=== PATIENT | female | born 1950 | race Caucasian/White ===

== ENCOUNTER 2017-08-04 14:36 | Inpatient (IN) | payer MEDICARE, BC ==
[~2017-08-04] VITALS: Ht 160 cm; Wt 43.5 kg
[2017-08-04] MEDS ORDERED: Magnesium 1GM/D5W 100ML PREMIX 200 ML IV ONE ×2 (14:47→15:43)
[2017-08-04] MEDS ORDERED: IPRATROPIUM NEB FS 0.5 MG/2.5 ML AMPUL.NEB NEB ONE (15:00)
[2017-08-04] MEDS ORDERED: IV NS 0.9% 1,000 ML BAG IV ONE (15:00)
[2017-08-04] MEDS ORDERED: methylPREDNISolone SOD SUCC 125 MG/2ML VIAL IV ONE (15:00)
[2017-08-04] MEDS ORDERED: ALBUTEROL FS 2.5 MG/3 ML VIAL.NEB CONTNEB ONE (15:00)
--- NOTE | 2017-08-04 15:00 | NUR ---
PT CAME IN FROM PMD OFFICE FOR SOB, HYPOXIA. SEEN BY FOR GUSTAVO. NOTED WITH MINIMAL LABORED BREATHING. PT NOTED ON CONTINUOUS OXYGEN AT HOME. SAFETY AND COMFORT MEASURES PROVIDED. WILL MONITOR.
[2017-08-04 15:09] LABS: BASOPHILS # (AUTO) 0.1 /CMM (0.0-0.2); EOSINOPHILS # (AUTO) 0.1 /CMM (0.0-0.7); HEMATOCRIT 34 % (33-45); HEMOGLOBIN 11.6 g/dL (11.5-14.8); LYMPHOCYTES # (AUTO) 1.8 /CMM (0.8-4.8); MEAN CORPUSCULAR HEMOGLOBIN 32 PG (26.0-33.0); MEAN CORPUSCULAR HGB CONC 34 g/dl (31.0-36.0); MEAN CORPUSCULAR VOLUME 96 fL (82-100); MONOCYTES # (AUTO) 0.6 /CMM (0.1-1.30); MONOCYTES % (AUTO) 5.3 % (2.0-12.0); NEUTROPHILS # (AUTO) 9.4 /CMM (1.8-8.9); NEUTROPHILS % (AUTO) 77.7 % (43.0-81.0); PLATELET COUNT (AUTO) 273 /CMM (150-450); RDW COEFFICIENT OF VARIATION 14.5 (11.5-15.0); RED BLOOD CELL COUNT(AUTO) 3.59 MIL/uL (4.0-5.2)
[2017-08-04 15:19] LABS: CALCIUM, SERUM 8.7 mg/dL (8.5-10.1); CARBON DIOXIDE 26 mmol/L (21-32); CHLORIDE 99 mmol/L (98-107); CREATININE 0.7 mg/dL (0.6-1.3); GLUCOSE 100 mg/dL (74-106); POTASSIUM 3.9 mmol/L (3.5-5.1); SODIUM SERUM 132 mmol/L (136-145); UREA NITROGEN, BLOOD 16 mg/dL (7-18)
[2017-08-04 15:25] LABS: ALANINE AMINOTRANSFERASE 17 U/L (12-78); ALBUMIN 2.8 g/dL (3.4-5.0); ALKALINE PHOSPHATASE 69 U/L (46-116); ASPARTATE AMINOTRANSFERASE 24 U/L (15-37); BILIRUBIN,DIRECT 0.1 mg/dL (0.0-0.2); BILIRUBIN,TOTAL 0.2 mg/dL (0.2-1.0); TOTAL PROTEIN, SERUM 6.9 g/dL (6.4-8.2)
[2017-08-04 15:27] LABS: TROPONIN I < 0.017 ng/mL (0.00-0.056)
--- NOTE | 2017-08-04 15:40 | NUR ---
IV ACCESS STARTED. PT MEDICATED ORDERED.
[2017-08-04] MEDS ORDERED: methylPREDNISolone SOD SUCC 125 MG/2ML VIAL ONE (15:43)
[2017-08-04] MEDS ORDERED: LEVOFLOXACIN 750 MG /D5W 150ML PIGGYBACK IV ONE (16:00)
[2017-08-04] MEDS ORDERED: ALBUTEROL FS 2.5 MG/3 ML VIAL.NEB ONE (16:00)
[2017-08-04] MEDS ORDERED: IPRATROPIUM NEB FS 0.5 MG/2.5 ML AMPUL.NEB ONE (16:00)
[2017-08-04] MEDS ORDERED: MULT-24 PO (16:14)
[2017-08-04] MEDS ORDERED: CHOL100044 PO (16:14)
[2017-08-04] MEDS ORDERED: BUPR1FIL3 SL (16:14)
[2017-08-04] MEDS ORDERED: RALO60TA PO (16:14)
[2017-08-04] MEDS ORDERED: ATOR10TA PO (16:14)
[2017-08-04] MEDS ORDERED: ASPI81TA2 PO (16:14)
[2017-08-04] MEDS ORDERED: DULO60CA45 PO (16:14)
[2017-08-04] MEDS ORDERED: DIVA250T6 PO (16:14)
[2017-08-04] MEDS ORDERED: FLUT1DIS3 IH (16:14)
[2017-08-04] MEDS ORDERED: ASCO500T9 PO (16:14)
[2017-08-04] MEDS ORDERED: PRIM250T8 PO (16:14)
[2017-08-04] MEDS ORDERED: ZOLP5TAB7 PO (16:14)
[2017-08-04] MEDS ORDERED: ALPR1TAB7 PO (16:14)
[2017-08-04] MEDS ORDERED: CYCL30DR EACHEYE (16:15)
[2017-08-04] MEDS ORDERED: QUET25TA PO (16:15)
[2017-08-04] MEDS ORDERED: MONT10TA22 PO (16:15)
[2017-08-04] MEDS ORDERED: TIOT18CA3 IH (16:15)
[2017-08-04] MEDS ORDERED: IOHEXOL-350 100 ML VIAL IV ONE (16:23)
[2017-08-04] MEDS ORDERED: CT SWABBABLE VALVE TRANS SET 1 EA INFUS.SET MC ONE (16:23)
[2017-08-04] MEDS ORDERED: IV NS 0.9% 250 ML IV ONE (16:23)
[2017-08-04] MEDS ORDERED: LEVOFLOXACIN 750 MG /D5W 150ML 150 ML IV ONE (16:32)
--- NOTE | 2017-08-04 16:33 | NUR ---
PT TAKEN FOR CTA.- SECOND IV ACCESS FOR CTA.
--- NOTE | 2017-08-04 17:20 | NUR ---
REPORT GIVEN TO JOSHUA GONZALEZ FOR TELE ROOM 327-1
--- NOTE | 2017-08-04 17:30 | NUR ---
PAGED DR. HAMMOND FOR UPDATE
[2017-08-04] MEDS ORDERED: ZOLPIDEM TARTRATE 5 MG TABLET PO PRN (18:00)
[2017-08-04] MEDS ORDERED: MAG HYDROX/AL HYDROX/SIMETH 30 ML UDC PO PRN (18:00)
[2017-08-04] MEDS ORDERED: LORAZEPAM 0.5 MG TABLET PO PRN (18:00)
[2017-08-04] MEDS ORDERED: MAGNESIUM HYDROXIDE 30 ML UDC PO PRN (18:00)
[2017-08-04] MEDS ORDERED: PRIMIDONE 250 MG TABLET PO SCH (18:00)
[2017-08-04] MEDS ORDERED: ENOXAPARIN SODIUM 40 MG/0.4 ML DISP.SYRIN SQ SCH (18:00)
[2017-08-04] MEDS ORDERED: ONDANSETRON HCL/PF 4 MG/2 ML VIAL IVP PRN (18:00)
[2017-08-04] MEDS ORDERED: Z GUARD REMEDY 2 OZ OINT TP PRN (18:00)
[2017-08-04] MEDS ORDERED: ACETAMINOPHEN 325 MG TABLET PO PRN (18:00)
[2017-08-04] MEDS ORDERED: QUETIAPINE FUMARATE 25 MG TABLET PO SCH (18:00)
--- NOTE | 2017-08-04 18:08 | NUR ---
MS/SCHOOL TRAFFIC GUARD RECEIVED PATIENT IN STABLE CONDITION FROM ER. ALERT AND ORIENTED TIMES 4. ABLE TO MAKE DECISIONS AND NEEDS KNOWN. AMBULATES WITH ASSIST. USES BEDSIDE COMMODE. ON TELE MONITOR. RIGHT F/A GAUGE 20 INTACT. REPORT GIVEN BY ALICIA FROM ER.
--- NOTE | 2017-08-04 18:46 | NUR ---
MS/RN CLOSING NOTE PATIENT IN BED AWAKE IN STABLE CONDITION. ALERT AND ORIENTED TIMES 4. NO SIGNS OF ACUTE DISTRESS. NO COMPLAIN OF PAIN OR DISCOMFORT. ALL NEEDS ATTENDED TO. CALL LIGHT WITHIN REACH. WILL ENDORSE TO NEXT SHIFT FOR CONTINUITY OF CARE.
--- NOTE | 2017-08-04 19:10 | NUR ---
MSRN FULLY AWAKE, ALERT ORIENTED X4. MIN SOB ON EXERTION. WANTED TO BE MOVED TO ANOTHER ROOM, AWAITING. ABLE TO PROVIDE HEALTH INFORMATION. WILL NEED CM TO SPEAK TO PATIENT, NEED HELP AT HOME UPON DC. STATED JUST RECENTLY LOST HER LAST WEEK. 02 2 L VIA NC MAINTAINED. REVIEWED WITH PATIENT PLAN OF CARE AND MEDICATION REGIMEN, APPEARS TO UNDERSTAND. ORIENTED TO ROOM FACILITIES, ALL NEEDS MADE. SAFETY PRECAUTIONS EMPHASIZED, WELL UNDERSTOOD. PROVIDED BSC, VOIDED FREELY. CONTINUED.
[2017-08-04 20:00] VITALS: BP 99/64
--- NOTE | 2017-08-04 20:15 | NUR ---
TELERN SON ARRIVED,WILL BRING ADVANCE DIRECTIVES ON HIS NEXT VISIT.
[2017-08-04] MEDS: PRIMIDONE 250 MG TABLET PO SCH (21:00)
[2017-08-04] MEDS: ZOSYN IVPB 3.375 G in IV D5W 50ml IV SCH (21:28)
[2017-08-04] MEDS: QUETIAPINE FUMARATE 25 MG TABLET PO SCH (21:29)
[2017-08-04] MEDS: ENOXAPARIN SODIUM 40 MG/0.4 ML DISP.SYRIN SQ SCH (21:30)
[2017-08-04] MEDS: ALPRAZOLAM 1 MG TABLET PO SCH (21:31)
--- NOTE | 2017-08-04 21:37 | NUR ---
RAIMLA TOOK MYSOLINE AT HOME THIS MORNING.
[2017-08-04] MEDS ORDERED: KEY,NONCONTROL,TO KEEP IN PYXI 1 EA MC ONE (21:44)
[2017-08-04] MEDS: SUBOXONE SL SCH (21:55)
--- NOTE | 2017-08-04 23:16 | NUR ---
MSRN PATIENT MOVED TO ROOM 314-1 VIA BED WITH ALL PERSONAL BELONGINGS, NO RESPIRATORY DISTRESS.
[2017-08-05] VITALS: BP 99/63
[2017-08-05] MEDS: IPRATROPIUM NEB FS 0.5 MG/2.5 ML AMPUL.NEB NEB SCH ×4 (01:26→19:30)
--- NOTE | 2017-08-05 01:57 | NUR ---
MSRN SLEEPING APPEARS COMFORTABLE. CLOSELY WATCHED.
--- NOTE | 2017-08-05 02:40 | NUR ---
RAMILA SLEPT WELL, CLOSELY WATCHED.
[2017-08-05] MEDS: ZOSYN IVPB 3.375 G in IV D5W 50ml IV SCH ×4 (03:28→18:12)
--- NOTE | 2017-08-05 06:30 | NUR ---
MSRN BLOOD DRAW DONE. WENT BACK TO SLEEP. NO NEEDS MADE.
--- NOTE | 2017-08-05 07:15 | NUR ---
RN NOTES PT IS IN BED, SLEEPING COMFORTABLY. PT ON 2L O2 VIA NASAL CANNULA, RESPIRATIONS ARE EVEN AND UNLABORED. IV ON RFA, INTACT AND PATENT. SAFETY MEASURES ARE IN PLACE, CALL LIGHT IS IN REACH. WILL CONTINUE TO MONITOR.
[2017-08-05 07:34] LABS: BASOPHILS # (AUTO) 0.1 /CMM (0.0-0.2); BASOPHILS % (AUTO) 0.7 % (0.0-2.0); EOSINOPHILS # (AUTO) 0.1 /CMM (0.0-0.7); EOSINOPHILS % (AUTO) 0.4 % (0.0-6.0); HEMATOCRIT 37 % (33-45); HEMOGLOBIN 12.1 g/dL (11.5-14.8); LYMPHOCYTES # (AUTO) 1.9 /CMM (0.8-4.8); LYMPHOCYTES % (AUTO) 12.9 % (20.0-44.0); MEAN CORPUSCULAR HEMOGLOBIN 32 PG (26.0-33.0); MEAN CORPUSCULAR HGB CONC 33 g/dl (31.0-36.0); MEAN CORPUSCULAR VOLUME 99 fL (82-100); MONOCYTES # (AUTO) 0.8 /CMM (0.1-1.30); MONOCYTES % (AUTO) 5.3 % (2.0-12.0); NEUTROPHILS # (AUTO) 11.6 /CMM (1.8-8.9); NEUTROPHILS % (AUTO) 80.7 % (43.0-81.0); PLATELET COUNT (AUTO) 275 /CMM (150-450); RDW COEFFICIENT OF VARIATION 15.6 (11.5-15.0); RED BLOOD CELL COUNT(AUTO) 3.76 MIL/uL (4.0-5.2); WHITE BLOOD COUNT (AUTO) 14.4 K/uL (4.3-11.0)
[2017-08-05 07:50] LABS: CALCIUM, SERUM 8.5 mg/dL (8.5-10.1); CREATININE 0.7 mg/dL (0.6-1.3); MAGNESIUM 2.1 mg/dL (1.8-2.4); PHOSPHORUS 3.8 mg/dL (2.5-4.9); POTASSIUM 3.8 mmol/L (3.5-5.1)
[2017-08-05 08:00] VITALS: BP 101/61
[2017-08-05] MEDS ORDERED: KEY,NONCONTROL,TO KEEP IN PYXI 1 EA MC ONE ×2 (08:07→20:47)
[2017-08-05] MEDS: methylPREDNISolone SOD SUCC 125 MG/2ML VIAL IV SCH ×3 (08:48→17:09)
[2017-08-05] MEDS: ASPIRIN 81 MG TAB.CHEW PO SCH (08:48)
[2017-08-05] MEDS: DULOXETINE HCL 30 MG CAPSULE.DR PO SCH (08:48)
[2017-08-05] MEDS: PANTOPRAZOLE 40 MG TABLET.DR PO SCH (08:48)
[2017-08-05] MEDS: MULTIVITAMINS,THERAGRAN 1 UDTAB TABLET PO SCH (08:48)
[2017-08-05] MEDS: ATORVASTATIN 10 MG TABLET PO SCH (08:48)
[2017-08-05] MEDS: ASCORBIC ACID 500 MG TABLET PO SCH (08:48)
[2017-08-05] MEDS: MONTELUKAST SODIUM (10MG) 10 MG TABLET PO SCH (08:48)
[2017-08-05] MEDS: RALOXIFENE 60 MG TABLET PO SCH (08:48)
[2017-08-05] MEDS: DIVALPROEX SODIUM 250 MG TABLET.DR PO SCH ×2 (08:48→17:09)
[2017-08-05] MEDS: CHOLECALCIFEROL 1,000 UNIT TABLET (VIT D3) PO SCH (08:48)
[2017-08-05] MEDS: SUBOXONE SL SCH ×2 (08:49→20:53)
[2017-08-05] MEDS: FLUTICASONE/VILANTEROL 1 EACH BLST.W.DEV IH SCH (08:49)
[2017-08-05] MEDS ORDERED: TIOTROPIUM BROMIDE 6 CAP/BOX CAP.W.DEV IH SCH (09:00)
[2017-08-05] MEDS: HYDROCODONE/APAP 5/325MG 1 EACH TABLET PO PRN (10:31)
[2017-08-05] MEDS ORDERED: ACETYLCYSTEINE 10% 3,000 MG/30 ML VIAL PO SCH (11:00)
[2017-08-05] MEDS ORDERED: DIATR MEGLU/DIATRIZOATE SODIUM 30 ML BOTTLE (GASTROGRAPHIN) ONE (11:59)
[2017-08-05] MEDS ORDERED: IV NS 0.9% 250 ML IV ONE (13:27)
[2017-08-05] MEDS ORDERED: IOHEXOL-300 100 ML VIAL IV ONE (13:27)
[2017-08-05] MEDS: ACETYLCYSTEINE 10% SOLN 400 MG/4 ML VIAL PO SCH ×2 (15:20→20:00)
[2017-08-05 16:00] VITALS: BP 105/75
[2017-08-05] MEDS: PRIMIDONE 250 MG TABLET PO SCH (17:09)
[2017-08-05] MEDS: QUETIAPINE FUMARATE 25 MG TABLET PO SCH (17:09)
[2017-08-05 18:30] LABS: ABG BASE EXCESS 2.3 mmol/L; ABG OXYGEN SATURATION 88.4 % (92.0-98.5); ABG PCO2 41.4 mmHg (35.0-45.0); ABG PH 7.429 (7.350-7.450); ABG PO2 56.9 mmHg (75.0-100.0); AaDO2 101.1 mmHg; COHb 0.7 % (0.5-1.5); MetHb 0.6 % (0.0-1.5); O2Hb 87.3 % (94.0-97.0); SITE, ABG Right Brachial; VENT MODE, BG NASAL CANNULA
--- NOTE | 2017-08-05 18:41 | NUR ---
RN NOTES PT IS LAYING IN BED, COMFORTABLY. PT ON O2 VIA NASAL CANNULA AT 2L, RESPIRATIONS ARE EVEN AND UNLABORED. IV ON DIPAK INTACT AND PATENT. ALL NEEDS WERE MET AND MEDS WERE GIVEN ORDERED. SON CONCERNED OF SUSPECTED LUNG CANCER REPORT FROM DR. HARTMANN. PT REQUESTS TO COMPARE RADIOLOGY REPORTS FROM [facility] AND [facility] FROM MAY AND JUNE VISITS. MEDICAL INFO RELEASE FORMS WERE SIGNED AND PLACED IN CHART. REQUESTS SHOULD BE FAXED TO HOSPITALS IN THE AM. SAFETY MEASURES ARE IN PLACE, CALL LIGHT IS IN REACH. WILL ENDORSE TO PERSONNEL SUPERVISOR RN FOR CONTINUITY OF CARE.
--- NOTE | 2017-08-05 19:39 | NUR ---
MS/RN OPENING NOTES PATIENT RESTING COMFORTABLE IN BED ABLE TO VERBALIZE NEEDS. PROVIDED FLUIDS AT BEDSIDE. RESPIRATIONS EVEN AND UNLABORED, SKIN WARM TO TOUCH. RECEIVE ENDORSEMENT FROM AM RN REGARDING YAIR. WILL CONTINUE MONITORING AND PROVIDE CARE. CALL LIGHTS WITHIN REACH. DENIES NO PAIN. WILL CONTINUE TO MONITOR, BED IN LOCK POSITION. BED SIDE COMMODE WITHIN REACH, INFORM TO CALL FOR ASSISTANCE AT ALL TIMES.
[2017-08-05 20:00] VITALS: BP 105/55
--- NOTE | 2017-08-05 20:36 | NUR ---
RT PT RRFUSED TX , WANTS TO CONTINUE SLEEPING. NO SOB OR DISTRESS NOTED.
[2017-08-05] MEDS: ENOXAPARIN SODIUM 40 MG/0.4 ML DISP.SYRIN SQ SCH (20:57)
[2017-08-05] MEDS: ALPRAZOLAM 1 MG TABLET PO SCH (21:05)
[2017-08-06] MEDS: IPRATROPIUM NEB FS 0.5 MG/2.5 ML AMPUL.NEB NEB SCH ×4 (00:32→19:39)
[2017-08-06] MEDS: ZOSYN IVPB 3.375 G in IV D5W 50ml IV SCH ×4 (00:44→18:57)
--- NOTE | 2017-08-06 06:25 | NUR ---
314-1 MS/RN CLOSING NOTES PATIENT ABLE TO SLEEP DURING THE NIGHT, REAPIRATIONS EVEN AND UNLABORED, VERBALIZE NO PAIN. COOPERATIVE TO CARE. CALL LIGHTS WITHIN REACH. WILL CONTINUE TO MONITOR.
--- NOTE | 2017-08-06 07:45 | NUR ---
RN OPENING NOTES RECEIVED PT. IN BED A&OX4. BREATHING UNLABORED ON OXYGEN 2L/MIN, AND NO SOB. NO S/S OF ACUTE DISTRESS. IV FLUIDS RUNNING FOR TKO ON RIGHT FOREARM. PT. DOES NOT WANT TO WEAR DVT PUMPS, PT. WAS PROVIDED EDUCATION, AND VERBALIZED UNDERSTANDING. BED IS IN LOWEST POSITION, 2 SIDE RAILS UP, AND INSTRUCTED PT. TO USE CALL LIGHT WITHIN REACH. ALL NEEDS ATTENDED TO.
[2017-08-06 08:00] VITALS: BP 112/60
[2017-08-06] MEDS: DULOXETINE HCL 30 MG CAPSULE.DR PO SCH (09:05)
[2017-08-06] MEDS: ATORVASTATIN 10 MG TABLET PO SCH (09:05)
[2017-08-06] MEDS: PANTOPRAZOLE 40 MG TABLET.DR PO SCH (09:05)
[2017-08-06] MEDS: RALOXIFENE 60 MG TABLET PO SCH (09:06)
[2017-08-06] MEDS: ASPIRIN 81 MG TAB.CHEW PO SCH (09:06)
[2017-08-06] MEDS: CHOLECALCIFEROL 1,000 UNIT TABLET (VIT D3) PO SCH (09:06)
[2017-08-06] MEDS: ASCORBIC ACID 500 MG TABLET PO SCH (09:06)
[2017-08-06] MEDS: MONTELUKAST SODIUM (10MG) 10 MG TABLET PO SCH (09:06)
[2017-08-06] MEDS: DIVALPROEX SODIUM 250 MG TABLET.DR PO SCH ×2 (09:08→17:38)
[2017-08-06] MEDS: methylPREDNISolone SOD SUCC 125 MG/2ML VIAL IV SCH ×3 (09:08→17:37)
[2017-08-06] MEDS: FLUTICASONE/VILANTEROL 1 EACH BLST.W.DEV IH SCH (09:09)
[2017-08-06] MEDS ORDERED: KEY,NONCONTROL,TO KEEP IN PYXI 1 EA MC ONE ×2 (09:27→21:07)
[2017-08-06] MEDS: ACETYLCYSTEINE 10% SOLN 400 MG/4 ML VIAL PO SCH ×2 (09:34→17:38)
[2017-08-06] MEDS: MULTIVITAMINS,THERAGRAN 1 UDTAB TABLET PO SCH (09:34)
[2017-08-06] MEDS: SUBOXONE SL SCH ×2 (09:35→21:13)
--- NOTE | 2017-08-06 11:00 | NUR ---
RN NOTES RECEIVED MEDICAL RECORDS FROM [facility], AND PLACED IN PT.'S CHART. REACHED OUT TO [facility] FOR MEDICAL RECORDS FROM JUNE, NO ANSWER.
[2017-08-06] MEDS: HYDROCODONE/APAP 5/325MG 1 EACH TABLET PO PRN ×2 (12:24→16:37)
[2017-08-06 16:00] VITALS: BP 109/63
[2017-08-06 16:19] VITALS: BP 109/63
--- NOTE | 2017-08-06 16:50 | NUR ---
RN NOTES BROUGHT TO PHARMACY PT.'S HOME MEDICATION, RESTASIS EYEDROPS.
[2017-08-06] MEDS: QUETIAPINE FUMARATE 25 MG TABLET PO SCH (18:00)
[2017-08-06] MEDS: PRIMIDONE 250 MG TABLET PO SCH (18:00)
--- NOTE | 2017-08-06 19:39 | NUR ---
RN CLOSING NOTES PT. IN BED WITH HEAD OF BED UP, A&OX4. BREATHING UNLABORED ON OXYGEN 3L/MIN, AND NO SOB. NO S/S OF ACUTE DISTRESS. IV ANTIBIOTICS RUNNING AT 100 ML/HR ON RIGHT UPPER ARM. PT. IS NOT WEARING DVT PUMPS PER REQUEST. PT. WAS PROVIDED EDUCATION, AND VERBALIZED UNDERSTANDING. BED IS IN LOWEST POSITION, 2 SIDE RAILS UP, AND INSTRUCTED PT. TO USE CALL LIGHT WITHIN REACH. ALL NEEDS ATTENDED TO.
--- NOTE | 2017-08-06 19:40 | NUR ---
MS/RN OPENING NOTES PATIENT RESTING COMFORTABLY IN BED, AWAKE, ALERT X2. ABLE TO RESPOND AND WITH [facility] E[employer] CONTACT. REQUIRE MONITORING FOR SAFETY AND ENCOURAGE TO EAT. OFFER FLUIDS. ON IV FOR HYDRATION. W/ SITTER FOR MONITORING. RECEIVED REPORT FROM AM RN REGARDING PLAN AND YAIR. BED IN LOCK POSITION.
--- NOTE | 2017-08-06 19:43 | NUR ---
MS/RN OPENING NOTES PATIENT RESTING COMFORTABLY IN BED, AWAKE, ALERT AND ABLE TO VERBALIZE NEEDS. OBSERVE NO PAIN AND DENIES PAIN AT THIS TIME. RESPIRATIONS EVEN AND UNLABORED AND BED SIDE COMMODE NEARBY. WILL MONITOR AND ASSIST. CALL LIGHTS WITHIN REACH. BED IN LOCK POSITION. SKIN WARM TO TOUCH.
[2017-08-06 20:00] VITALS: BP 107/65
[2017-08-06] MEDS: ALPRAZOLAM 1 MG TABLET PO SCH (21:13)
[2017-08-06] MEDS: ENOXAPARIN SODIUM 40 MG/0.4 ML DISP.SYRIN SQ SCH (21:17)
[2017-08-07] MEDS: IPRATROPIUM NEB FS 0.5 MG/2.5 ML AMPUL.NEB NEB SCH ×4 (01:30→19:28)
[2017-08-07] MEDS: ZOSYN IVPB 3.375 G in IV D5W 50ml IV SCH ×4 (02:21→19:33)
--- NOTE | 2017-08-07 07:30 | NUR ---
RN OPENING NOTES RECEIVED PT. IN BED A&OX4. BREATHING UNLABORED ON OXYGEN 2L/MIN, AND NO SOB. NO S/S OF ACUTE DISTRESS. IV FLUIDS RUNNING FOR 5ML/HR TKO ON RIGHT UPPER ARM. PT. DOES NOT WANT TO WEAR DVT PUMPS, PT. WAS PROVIDED EDUCATION, AND VERBALIZED UNDERSTANDING. BED IS IN LOWEST POSITION, 2 SIDE RAILS UP, AND INSTRUCTED PT. TO USE CALL LIGHT WITHIN REACH. ALL NEEDS ATTENDED TO.
[2017-08-07 08:00] VITALS: BP 125/72
[2017-08-07] MEDS: MONTELUKAST SODIUM (10MG) 10 MG TABLET PO SCH (09:46)
[2017-08-07] MEDS: CHOLECALCIFEROL 1,000 UNIT TABLET (VIT D3) PO SCH (09:46)
[2017-08-07] MEDS: DULOXETINE HCL 30 MG CAPSULE.DR PO SCH (09:46)
[2017-08-07] MEDS: DIVALPROEX SODIUM 250 MG TABLET.DR PO SCH ×2 (09:46→17:44)
[2017-08-07] MEDS: RALOXIFENE 60 MG TABLET PO SCH (09:46)
[2017-08-07] MEDS: MULTIVITAMINS,THERAGRAN 1 UDTAB TABLET PO SCH (09:46)
[2017-08-07] MEDS: FLUTICASONE/VILANTEROL 1 EACH BLST.W.DEV IH SCH (09:46)
[2017-08-07] MEDS: ATORVASTATIN 10 MG TABLET PO SCH (09:46)
[2017-08-07] MEDS: PANTOPRAZOLE 40 MG TABLET.DR PO SCH (09:47)
[2017-08-07] MEDS: ASPIRIN 81 MG TAB.CHEW PO SCH (09:47)
[2017-08-07] MEDS: ASCORBIC ACID 500 MG TABLET PO SCH (09:47)
[2017-08-07] MEDS ORDERED: KEY,NONCONTROL,TO KEEP IN PYXI 1 EA MC ONE ×3 (09:57→21:12)
[2017-08-07] MEDS: methylPREDNISolone SOD SUCC 125 MG/2ML VIAL IV SCH ×3 (10:04→17:43)
[2017-08-07] MEDS: SUBOXONE SL SCH ×2 (10:05→21:58)
--- NOTE | 2017-08-07 12:44 | NUR ---
RN NOTES SUBOXONE PT.'S SON BROUGHT AN UNOPENED BOX OF SUBOXONE SUBLINGUAL FILM STRIPS. MEDICATION WAS ACCEPTED BY PHARMACY.
--- NOTE | 2017-08-07 12:47 | NUR ---
RN NOTES PT.'S SON STATED THAT HE WILL GO TOMORROW ON TUESDAY TO [facility] AND [facility] TO GET CD'S OF PT.'S MEDICAL RECORDS.
--- NOTE | 2017-08-07 14:01 | NUR ---
RN NOTES PHARMACY BROUGHT PT.'S MEDICATION SUBOXONE FILM STRIPS. RECEIVED TOTAL 30 FILM STRIPS FROM PHARMACY THAT WAS WITNESSED BY CHARGE NURSE LISE. 30 FILM STRIPS WERE PLACED IN THE MEDICATION ROOM IN THE LOCKED BOX WITH ADMINISTRATION SIGN IN PAPER.
[2017-08-07 16:00] VITALS: BP 102/57
[2017-08-07] MEDS: LACTOSE-FREE FOOD 237 ML LIQUID PO SCH (17:00)
--- NOTE | 2017-08-07 17:34 | NUR ---
RN NOTES MEDICAL RECORDS/CD PT.'S DAUGHTER IN LAW BROUGHT A CD FROM [facility]. WILL BRING TO RADIOLOGY. RECEIVED FAX FROM [employer] OF PT.'S MEDICAL RECORDS, AND PLACED IN CHART.
[2017-08-07] MEDS: PRIMIDONE 250 MG TABLET PO SCH (18:12)
[2017-08-07] MEDS: QUETIAPINE FUMARATE 25 MG TABLET PO SCH (18:12)
--- NOTE | 2017-08-07 18:46 | NUR ---
RN NOTES CD IN RADIOLOGY BROUGHT PT.'S CD FROM [facility] TO RADIOLOGY. CD IS IN RADIOLOGIST OFFICE WITH NOLAN.
--- NOTE | 2017-08-07 18:49 | NUR ---
RN CLOSING NOTES PT. IS IN BED A&OX4. BREATHING UNLABORED ON OXYGEN 3L/MIN WITH NO SOB. NO S/S OF ACUTE DISTRESS. BED IS IN LOWEST POSITION, 2 SIDE RAILS UP, AND INSTRUCTED PT. TO USE CALL LIGHT WITHIN REACH. ALL NEEDS ATTENDED TO. WILL ENDORSE REPORT TO NURSE.
[2017-08-07 19:59] VITALS: BP 119/74
[2017-08-07 20:00] VITALS: BP 119/74
--- NOTE | 2017-08-07 20:00 | NUR ---
MS/RN OPENING NOTES PATIENT AWAKE, ALERT X4 ABLE TO VERBALIZE NEEDS .IV SITE ON DIPAK INFILTRATE WILL REMOVE RECEIVE ENDORSEMENT FORM AM RN REGARDING PLAN OF CARE. WILL CONTINUE TO MONITOR.
[2017-08-07] MEDS: ENOXAPARIN SODIUM 40 MG/0.4 ML DISP.SYRIN SQ SCH (21:42)
[2017-08-07] MEDS: ALPRAZOLAM 1 MG TABLET PO SCH (21:56)
[2017-08-08] MEDS: IPRATROPIUM NEB FS 0.5 MG/2.5 ML AMPUL.NEB NEB SCH ×4 (01:30→19:34)
[2017-08-08] MEDS: ZOSYN IVPB 3.375 G in IV D5W 50ml IV SCH ×4 (02:19→18:47)
--- NOTE | 2017-08-08 06:32 | NUR ---
MS/RN CLOSING NOTES PATIENT AWAKE, ALERTX4. ABLE TO VERBALIZE NEEDS AT ALL TIMES, ON 2L OXYGEN VIA NC . REPIRATIONS EVEN AND UNLABORED. SEYMOUR TO AM RN FOR YAIR.
--- NOTE | 2017-08-08 07:15 | NUR ---
MS RN OPENING NOTE RECEIVED REPORT ON THE PATIENT. IN BED A&OX4. PRESENTS WITH NON-LABORED, EVEN BREATHING ON OXYGEN 2L/MIN. PATIENT REFUSED TO WEAR THE DVT PUMPS. SN EDUCATED THE PATIENT ON THE IMPORTANCE OF MECHANICAL VTE PROPHYLAXIS AND ABOUT VTE RISK. PATIENT VERBALIZED UNDERSTANDING, BUT STATED SHE DOESN'T WANT TO WEAR THE DVT PUMPS. BED IS IN LOWEST POSITION, SIDE RAILS UP X 2, CALL LIGHT WITHIN REACH. ALL NEEDS ATTENDED TO. WILL CONTINUE TO MONITOR.
[2017-08-08] MEDS ORDERED: KEY,NONCONTROL,TO KEEP IN PYXI 1 EA MC ONE ×3 (07:47→20:58)
[2017-08-08 08:00] VITALS: BP 103/68
[2017-08-08] MEDS: LACTOSE-FREE FOOD 237 ML LIQUID PO SCH ×3 (08:00→18:20)
[2017-08-08] MEDS: DULOXETINE HCL 30 MG CAPSULE.DR PO SCH (08:28)
[2017-08-08] MEDS: PANTOPRAZOLE 40 MG TABLET.DR PO SCH (08:28)
[2017-08-08] MEDS: ASCORBIC ACID 500 MG TABLET PO SCH (08:30)
[2017-08-08] MEDS: MONTELUKAST SODIUM (10MG) 10 MG TABLET PO SCH (08:30)
[2017-08-08] MEDS: ASPIRIN 81 MG TAB.CHEW PO SCH (08:31)
[2017-08-08] MEDS: RALOXIFENE 60 MG TABLET PO SCH (08:31)
[2017-08-08] MEDS: ATORVASTATIN 10 MG TABLET PO SCH (08:32)
[2017-08-08] MEDS: DIVALPROEX SODIUM 250 MG TABLET.DR PO SCH ×2 (08:32→17:00)
[2017-08-08] MEDS: CHOLECALCIFEROL 1,000 UNIT TABLET (VIT D3) PO SCH (08:32)
[2017-08-08] MEDS: FLUTICASONE/VILANTEROL 1 EACH BLST.W.DEV IH SCH (08:32)
[2017-08-08] MEDS: methylPREDNISolone SOD SUCC 125 MG/2ML VIAL IV SCH ×3 (08:34→17:11)
--- NOTE | 2017-08-08 08:39 | NUR ---
MS RN NOTE HOME MEDICATION RETRIEVED FROM THE SAFE, COUNTED, VERIFIED AND WITNESSED BY THE CHARGE NURSE REX.
[2017-08-08] MEDS: MULTIVITAMINS,THERAGRAN 1 UDTAB TABLET PO SCH (08:51)
[2017-08-08] MEDS: SUBOXONE SL SCH ×2 (08:51→21:04)
--- NOTE | 2017-08-08 10:31 | NUR ---
ms rn notes Dr. Singletary came seen and examined the patient and ordered to keep patient NPO just in case patient family decide for ERCP and MD will contact Dr Vinson. All orders carried out and noted. Will continue to monitor accordingly.
[2017-08-08 16:00] VITALS: BP 124/79
[2017-08-08] MEDS: PRIMIDONE 250 MG TABLET PO SCH (17:01)
[2017-08-08] MEDS: QUETIAPINE FUMARATE 25 MG TABLET PO SCH (17:02)
--- NOTE | 2017-08-08 17:02 | NUR ---
MS RN NOTE ALL PO MEDICATIONS ARE HELD AT THIS TIME. PATIENT IS NPO AWAITING FOR ERCP.
--- NOTE | 2017-08-08 18:43 | NUR ---
MS RN CLOSING NOTE PATIENT IS RESTING IN BED WITH EYES OPEN AND THE SON AT THE BEDSIDE. BED IS IN THE LOWEST POSITION, SIDE RAILS UP X 2, PATIENT IN HIGH ADAIR'S POSITION. CALL LIGHT IS WITHIN REACH. ALL NEEDS ARE ATTENDED TO. DENIES SOB/PAIN/DISCOMFORT AT THIS TIME. WILL INDORCE TO THE CLINICAL BUSINESS MANAGER NURSE FOR YAIR.
[2017-08-08 20:27] VITALS: BP 119/70
[2017-08-08] MEDS: ENOXAPARIN SODIUM 40 MG/0.4 ML DISP.SYRIN SQ SCH (21:08)
[2017-08-08] MEDS: ALPRAZOLAM 1 MG TABLET PO SCH (21:57)
[2017-08-09] MEDS: ZOSYN IVPB 3.375 G in IV D5W 50ml IV SCH ×3 (00:48→14:28)
[2017-08-09] MEDS: IPRATROPIUM NEB FS 0.5 MG/2.5 ML AMPUL.NEB NEB SCH ×3 (01:17→13:30)
--- NOTE | 2017-08-09 06:25 | NUR ---
Nursing Notes: Slept through the night. No c/o pain. Changing her own position through the night. pleasent to c/o pain.
--- NOTE | 2017-08-09 06:42 | NUR ---
TEXTED DR. ESTRADA FOR MRI APPROVAL.
[2017-08-09 07:13] LABS: CARCINOEMBRYONIC AG (CEA) 4.3 ng/mL (0.0-4.7)
--- NOTE | 2017-08-09 07:45 | NUR ---
RN MS NOTES PT IN BED, AWAKE, ALERT AND ORIENTED, ASSISTED WITH BEDSIDE COMMODE, NO COMPLAINT OF PAIN, NOT IN DISTRESS, CALL LIGHT WITHIN REACH, NEEDS ATTENDED.
[2017-08-09 08:00] VITALS: BP 130/73
[2017-08-09] MEDS ORDERED: KEY,NONCONTROL,TO KEEP IN PYXI 1 EA MC ONE ×2 (08:39→15:56)
[2017-08-09] MEDS: MULTIVITAMINS,THERAGRAN 1 UDTAB TABLET PO SCH (08:44)
[2017-08-09] MEDS: ATORVASTATIN 10 MG TABLET PO SCH (08:44)
[2017-08-09] MEDS: FLUTICASONE/VILANTEROL 1 EACH BLST.W.DEV IH SCH (08:44)
[2017-08-09] MEDS: ASPIRIN 81 MG TAB.CHEW PO SCH (08:45)
[2017-08-09] MEDS: ASCORBIC ACID 500 MG TABLET PO SCH (08:45)
[2017-08-09] MEDS: CHOLECALCIFEROL 1,000 UNIT TABLET (VIT D3) PO SCH (08:45)
[2017-08-09] MEDS: DULOXETINE HCL 30 MG CAPSULE.DR PO SCH (08:45)
[2017-08-09] MEDS: MONTELUKAST SODIUM (10MG) 10 MG TABLET PO SCH (08:45)
[2017-08-09] MEDS: DIVALPROEX SODIUM 250 MG TABLET.DR PO SCH (08:46)
[2017-08-09] MEDS: RALOXIFENE 60 MG TABLET PO SCH (08:46)
[2017-08-09] MEDS: PANTOPRAZOLE 40 MG TABLET.DR PO SCH (08:46)
[2017-08-09] MEDS: methylPREDNISolone SOD SUCC 125 MG/2ML VIAL IV SCH ×2 (08:46→14:29)
[2017-08-09] MEDS: SUBOXONE SL SCH (08:47)
--- NOTE | 2017-08-09 15:00 | NUR ---
RN MS NOTES PT IN BED, RESTING, NOT IN PAIN OR DISTRESS, MRCP RESULT RELAYED TO MD, AWAITING DISCHARGE ORDER, DUE MEDS GIVEN, NEEDS ATTENDED.
--- NOTE | 2017-08-09 16:47 | NUR ---
RN MS NOTES PT IN BED, AWAKE, NOT IN PAIN OR DISTRESS, RECEIVED DISCHARGE ORDER FROM DR. HAMMOND, DISCHARGE AND MEDICATION INSTRUCTIONS PROVIDED TO PT, VERBALIZED UNDERSTANDING, BELONGINGS ACCOUNTED FOR, PT'S OWN MEDS GIVEN TO PT, PICKED UP BY SON, ASSISTED TO WHEELCHAIR, LEFT IN STABLE CONDITION.
== END 2017-08-09 16:45 | disposition home or self-care (01) | DRG 190 ==
LOC: ER 14:38 → TELE 16:35 → MED 23:15
PROVIDERS: ADMIT Internal Medicine; ATTEND Internal Medicine
DX: J44.1 Chronic obstructive pulmonary disease with (acute) exacerbation (principal); J96.21 Acute and chronic respiratory failure with hypoxia; E43 Unspecified severe protein-calorie malnutrition; J98.2 Interstitial emphysema; Z99.81 Dependence on supplemental oxygen; K83.1 Obstruction of bile duct; K86.89 Other specified diseases of pancreas; K76.0 Fatty (change of) liver, not elsewhere classified; Z68.1 Body mass index [BMI] 19.9 or less, adult; Q85.02 Neurofibromatosis, type 2; Z82.5 Family history of asthma and other chronic lower respiratory diseases; Z87.891 Personal history of nicotine dependence; Z87.01 Personal history of pneumonia (recurrent); E78.5 Hyperlipidemia, unspecified; H40.9 Unspecified glaucoma; N28.1 Cyst of kidney, acquired; F41.8 Other specified anxiety disorders; R94.2 Abnormal results of pulmonary function studies; Z79.899 Other long term (current) drug therapy; I70.0 Atherosclerosis of aorta; R91.8 Other nonspecific abnormal finding of lung field; G89.29 Other chronic pain; M54.9 Dorsalgia, unspecified
CPT/HCPCS: 36415; 36600; 71010-TC; 74178; 74181-TC; 80048-TC; 80076-TC; 82378; 82803-TC; 83735-TC; 84100-TC; 84484-TC; 85025-TC; 86301; 87081-TC; 94799-TC; A4606; J1650; J1956; J2543; J2930; J3475; J7030; J7050; J7060; Q9963; Q9967; Z7610